=== PATIENT | male | born 1960 | race Hispanic/Latino ===

== ENCOUNTER 2021-09-09 12:17 | Emergency (ER) | payer OTHER ==
[~2021-09-09] VITALS: Ht 180.3 cm; Wt 95.7 kg
[2021-09-09 12:56] LABS: BASOPHILS % (AUTO) 1.1 % (0.0-5.0); EOSINOPHILS % (AUTO) 4.4 % (0.0-8.0); HEMATOCRIT 29.2 % (42-54); LYMPHOCYTES % (AUTO) 7.5 % (21.0-51.0); MEAN CORPUSCULAR HEMOGLOBIN 29.6 pg (27.0-33.0); MEAN CORPUSCULAR HGB CONC 31.8 g/dL (32.0-36.0); MONOCYTES % (AUTO) 9.1 % (3.0-13.0); NEUTROPHILS % (AUTO) 77.7 % (40.0-77.0); PLATELET COUNT (AUTO) 218 K/uL (130-400); RED BLOOD CELL COUNT(AUTO) 3.14 MIL/uL (4.50-6.20); RED CELL DISTRIBUTION WIDTH 12.7 % (11.0-15.5); WHITE BLOOD COUNT (AUTO) 8.3 K/uL (4.8-10.8)
[2021-09-09] MEDS ORDERED: HYDROCODONE/ACETAMINOPHEN 10/325 MG TAB PO ONE (13:00)
[2021-09-09] MEDS ORDERED: KETOROLAC 60 MG VIAL (30MG/ML) IM ONE (13:00)
[2021-09-09] MEDS ORDERED: CYCLOBENZAPRINE HCL 10 MG TABLET PO ONE (13:00)
[2021-09-09 13:04] LABS: CREATININE 3.2 mg/dL (0.5-1.5); POTASSIUM 4.6 mmol/L (3.5-5.1)
[2021-09-09 13:08] LABS: BILIRUBIN,TOTAL 0.5 mg/dL (0.2-1.0); TOTAL PROTEIN, SERUM 7.2 g/dL (6.0-8.3)
[2021-09-09] MEDS ORDERED: CYCL10TA16 PO (13:56)
[2021-09-09] MEDS ORDERED: ACET-2247 PO (13:56)
[2021-09-09 14:09] VITALS: BP 166/67
== END 2021-09-09 14:11 | disposition home or self-care (01) ==
LOC: EDH 12:17
DX: S16.1XXA Strain of muscle, fascia and tendon at neck level, initial encounter (principal); S20.219A Contusion of unspecified front wall of thorax, initial encounter; M25.512 Pain in left shoulder; M25.511 Pain in right shoulder; D64.9 Anemia, unspecified; N28.9 Disorder of kidney and ureter, unspecified; I11.0 Hypertensive heart disease with heart failure; I50.9 Heart failure, unspecified; E11.9 Type 2 diabetes mellitus without complications; E78.00 Pure hypercholesterolemia, unspecified; I25.10 Atherosclerotic heart disease of native coronary artery without angina pectoris; V49.49XA Driver injured in collision with other motor vehicles in traffic accident, initial encounter; Y93.89 Activity, other specified; Y92.89 Other specified places as the place of occurrence of the external cause; Y99.8 Other external cause status
CPT/HCPCS: 36415; 71250; 72125; 73030 ×2; 80053; 85025; 96372; 99285; J1885

== ENCOUNTER 2024-03-16 06:59 | Day surgery (SDC) | payer MEDICARE ==
[2024-03-12 13:08] LABS: BASOPHILS # (AUTO) 0.11 K/uL (0.00-0.20); BASOPHILS % (AUTO) 1.7 % (0.0-5.0); EOSINOPHILS # (AUTO) 0.57 K/uL (0.00-0.70); EOSINOPHILS % (AUTO) 8.8 % (0.0-8.0); IMMATURE GRANULOCYTE ABSOLUTE 0.01 K/uL (0-1); LYMPHOCYTES # (AUTO) 0.7 K/uL (1.0-4.8); LYMPHOCYTES % (AUTO) 11.4 % (21.0-51.0); MEAN CORPUSCULAR HEMOGLOBIN 30.5 pg (27.0-33.0); MEAN CORPUSCULAR HGB CONC 31.9 g/dL (32.0-36.0); MEAN CORPUSCULAR VOLUME 95.6 fL (79-99); MONOCYTES # (AUTO) 0.8 K/uL (0.1-1.0); MONOCYTES % (AUTO) 12.6 % (3.0-13.0); NEUTROPHILS # (AUTO) 4.3 K/uL (1.8-7.7); NEUTROPHILS % (AUTO) 65.3 % (40.0-77.0); PLATELET COUNT (AUTO) 198 K/uL (130-400); RED BLOOD CELL COUNT(AUTO) 3.87 MIL/uL (4.50-6.20); RED CELL DISTRIBUTION WIDTH 14.6 % (11.0-15.5); WHITE BLOOD COUNT (AUTO) 6.5 K/uL (4.8-10.8)
[2024-03-12 13:18] LABS: CREATININE 5.1 mg/dL (0.5-1.3); POTASSIUM 4.8 mmol/L (3.5-5.1)
[2024-03-12 13:59] VITALS: BP 153/79; PULSE 66; RESP 18
[2024-03-12 14:25] LABS: INR 0.97 (0.85-1.15); PROTHROMBIN TIME 10.3 SEC (9.6-11.6)
[2024-03-12 15:23] LABS: PARTIAL THROMBOPLASTIN TIME 25.4 SEC (26.3-35.5)
[2024-03-16] VITALS (16 sets, daily range): BP systolic 127–173; BP diastolic 53–95; PULSE 56–66; RESP 9–18
[~2024-03-16] VITALS: Ht 180.3 cm; Wt 96.6 kg
[~2024-03-16 06:59] MED LIST: ALBUTEROL IH; ASPI-1005 PO; CARV12.511 PO; FAMO20TA8 PO; FERS325 PO; FURO20TA4 PO; HYDR-3421 PO; LOSA50TA64 PO; NITR0.4T50 SL; TAMS-1 PO
[2024-03-16] MEDS: CEFAZOLIN SODIUM 2 GM VIAL ONE (07:54)
[2024-03-16] MEDS: 0.9% NACL 500ML IV.SOLN 500 ML IV ONE (07:55)
[2024-03-16 08:02] LABS: CREATININE 6.6 mg/dL (0.5-1.3); POTASSIUM 4.3 mmol/L (3.5-5.1)
[2024-03-16] MEDS ORDERED: METO50TA18 PO (08:05)
[2024-03-16] MEDS ORDERED: INSLAN SQ (08:05)
[2024-03-16] MEDS ORDERED: LIDOCAINE PF 100MG/5ML (2%) SYRINGE 5ML ONE (08:33)
[2024-03-16] MEDS ORDERED: DEXAMETHASONE SOD PHOSPHATE 10MG/ML 1ML VIAL ONE (08:33)
[2024-03-16] MEDS ORDERED: NEOSTIGMINE METHYLSULFATE 1MG/ML IV ONE (08:34)
[2024-03-16] MEDS ORDERED: ONDANSETRON 4MG INJ ONE (08:34)
[2024-03-16] MEDS ORDERED: MIDAZOLAM HCL 1 MG/ML 2ML VIAL ONE (08:34)
[2024-03-16] MEDS ORDERED: ROCURONIUM BROMIDE 10MG/1ML 5ML VL ONE (08:34)
[2024-03-16] MEDS ORDERED: GLYCOPYRROLATE 0.2 MG/ML 5 ML VIAL ONE (08:34)
[2024-03-16] MEDS ORDERED: PROPOFOL 10 MG/ML 20ML VIAL IV ONE (08:34)
[2024-03-16] MEDS ORDERED: FENTANYL CITRATE PF 50 MCG/1 ML 2ML VIAL ONE (08:35)
[2024-03-16] MEDS: CEFAZOLIN SODIUM 2 GM VIAL IVPB ONE (09:00)
[2024-03-16] MEDS ORDERED: PROTAMINE SULFATE 10 MG/ML 5 ML VIAL ONE (10:03)
[2024-03-16] MEDS ORDERED: EPHEDRINE SULFATE 50 MG/ML AMPULE ONE (10:04)
[2024-03-16] MEDS: ACETAMINOPHEN 1,000 MG/100 ML VIAL IV ONE (11:07)
[2024-03-16] MEDS: DEXTROSE 50%-WATER 50 ML DISP.SYRIN IV ONE (11:07)
[2024-03-16] MEDS: FENTANYL CITRATE PF 50 MCG/1 ML 2ML VIAL ONE (11:08)
== END 2024-03-16 12:35 | disposition home or self-care (01) ==
LOC: DAH 06:59
PROVIDERS: ATTEND Student in an Organized Health Care Education/Training Program
DX: I12.0 Hypertensive chronic kidney disease with stage 5 chronic kidney disease or end stage renal disease (principal); E11.22 Type 2 diabetes mellitus with diabetic chronic kidney disease; N18.6 End stage renal disease; F41.9 Anxiety disorder, unspecified; J44.9 Chronic obstructive pulmonary disease, unspecified; I25.118 Atherosclerotic heart disease of native coronary artery with other forms of angina pectoris; I70.223 Atherosclerosis of native arteries of extremities with rest pain, bilateral legs; I65.23 Occlusion and stenosis of bilateral carotid arteries; Z95.1 Presence of aortocoronary bypass graft; Z89.431 Acquired absence of right foot; Z79.82 Long term (current) use of aspirin; Z79.899 Other long term (current) drug therapy; Z98.890 Other specified postprocedural states; Z99.2 Dependence on renal dialysis
CPT/HCPCS: 80048 ×2; 85025; 85610; 85730; 86850 ×2; 86900 ×2; 86901 ×2; 36415 ×2; 36821; 82948 ×3; A6260; A4223 ×2; A4663; J7040 ×2; J3010 ×2; J1100; J7070; J3490 ×3; J2001; J2720; J2250; J2704; J2405; J2710; J1644 ×2; J0690 ×2; A6446; G0168; A4649; C1713 ×2; A4215; A4213; A4222; A4221

== ENCOUNTER 2024-06-28 10:27 | Emergency (ER) | payer MEDICARE ==
[~2024-06-28] VITALS: Ht 180.3 cm; Wt 98.9 kg
[~2024-06-28 10:27] MED LIST changes: +INSLAN SQ; +METO50TA18 PO
[2024-06-28 11:05] LABS: BILIRUBIN,URINE SMALL mg/dL (NEGATIVE); GLUCOSE, URINE (UA) 250 mg/dL (NEGATIVE); KETONES,URINE NEGATIVE (NEGATIVE); LEUKOCYTE ESTERASE ,URINE TRACE Leu/uL (NEGATIVE); NITRATE,URINE POSITIVE (NEGATIVE); OCCULT BLOOD,URINE LARGE (NEGATIVE); PH,URINE 7.5 (5.0-8.0); PROTEIN,URINE 100 mg/dL (NEGATIVE); UROBILINOGEN,URINE 0.2 mg/dL (0.2-1.0)
[2024-06-28 11:06] LABS: ADD UA MICROSCOPIC YES; APPEARANCE,URINE CLOUDY (CLEAR); COLOR,URINE RED (YELLOW)
[2024-06-28 11:07] LABS: RBC,URINE TNTC /HPF (0-1)
[2024-06-28 11:08] LABS: BACTERIA,URINE Moderate /HPF (None Seen)
[2024-06-28 11:09] LABS: SQUAMOUS EPITHELIAL CELL,UR None Seen /HPF (0-2)
[2024-06-28 11:15] LABS: BASOPHILS % (AUTO) 1.2 % (0.0-5.0); EOSINOPHILS # (AUTO) 0.56 K/uL (0.00-0.70); EOSINOPHILS % (AUTO) 6.9 % (0.0-8.0); HEMATOCRIT 30.8 % (42-54); IMMATURE GRANULOCYTE ABSOLUTE 0.01 K/uL (0-1); LYMPHOCYTES # (AUTO) 0.7 K/uL (1.0-4.8); LYMPHOCYTES % (AUTO) 8.1 % (21.0-51.0); MEAN CORPUSCULAR HEMOGLOBIN 30.8 pg (27.0-33.0); MEAN CORPUSCULAR HGB CONC 31.8 g/dL (32.0-36.0); MEAN CORPUSCULAR VOLUME 96.9 fL (79-99); MONOCYTES # (AUTO) 0.8 K/uL (0.1-1.0); MONOCYTES % (AUTO) 9.4 % (3.0-13.0); NEUTROPHILS # (AUTO) 6.1 K/uL (1.8-7.7); NEUTROPHILS % (AUTO) 74.3 % (40.0-77.0); PLATELET COUNT (AUTO) 229 K/uL (130-400); RED BLOOD CELL COUNT(AUTO) 3.18 MIL/uL (4.50-6.20); RED CELL DISTRIBUTION WIDTH 14.6 % (11.0-15.5); WHITE BLOOD COUNT (AUTO) 8.2 K/uL (4.8-10.8)
[2024-06-28 11:27] LABS: CREATININE 6.7 mg/dL (0.5-1.3); POTASSIUM 4.9 mmol/L (3.5-5.1)
[2024-06-28] MEDS: cefTRIAXone 1G VIAL IVPB STA (13:08)
[2024-06-28] MEDS ORDERED: CEPH500B PO (13:15)
[2024-06-28 13:16] VITALS: BP 138/78; PULSE 68; RESP 18; TEMP 97.7; O2SAT 97
== END 2024-06-28 13:21 | disposition home or self-care (01) ==
LOC: EDH 10:27
DX: N30.91 Cystitis, unspecified with hematuria (principal); I25.10 Atherosclerotic heart disease of native coronary artery without angina pectoris; E11.9 Type 2 diabetes mellitus without complications; E78.00 Pure hypercholesterolemia, unspecified; I11.0 Hypertensive heart disease with heart failure; I50.9 Heart failure, unspecified; Z79.4 Long term (current) use of insulin; Z79.82 Long term (current) use of aspirin; Z79.899 Other long term (current) drug therapy; Z95.1 Presence of aortocoronary bypass graft
CPT/HCPCS: 99285; 74176; 96374; 80048; 85025; 87086 ×2; 87186; 81001; 36415; J0696

== ENCOUNTER 2024-07-08 23:51 | Emergency (ER) | payer MEDICARE ==
[~2024-07-08] VITALS: Ht 180.3 cm; Wt 102.1 kg
[~2024-07-08 23:51] MED LIST changes: +CEPH500B PO
[2024-07-09] MEDS: acetaMINOPHEN WITH coDEINE 1 TAB TAB PO ONE (00:26)
[2024-07-09 01:08] LABS: BASOPHILS # (AUTO) 0.08 K/uL (0.00-0.20); BASOPHILS % (AUTO) 1.1 % (0.0-5.0); EOSINOPHILS # (AUTO) 0.36 K/uL (0.00-0.70); HEMATOCRIT 25.8 % (42-54); IMMATURE GRANULOCYTE ABSOLUTE 0.03 K/uL (0-1); LYMPHOCYTES # (AUTO) 0.6 K/uL (1.0-4.8); LYMPHOCYTES % (AUTO) 8.3 % (21.0-51.0); MEAN CORPUSCULAR HEMOGLOBIN 31.2 pg (27.0-33.0); MEAN CORPUSCULAR HGB CONC 33.7 g/dL (32.0-36.0); MEAN CORPUSCULAR VOLUME 92.5 fL (79-99); MONOCYTES # (AUTO) 1.1 K/uL (0.1-1.0); NEUTROPHILS % (AUTO) 70.2 % (40.0-77.0); PLATELET COUNT (AUTO) 204 K/uL (130-400); RED BLOOD CELL COUNT(AUTO) 2.79 MIL/uL (4.50-6.20); RED CELL DISTRIBUTION WIDTH 14.5 % (11.0-15.5); WHITE BLOOD COUNT (AUTO) 7.2 K/uL (4.8-10.8)
[2024-07-09 01:22] LABS: CREATININE 6.5 mg/dL (0.5-1.3)
[2024-07-09 01:25] LABS: INR 1.13 (0.85-1.15); PROTHROMBIN TIME 12.1 SEC (9.6-11.6)
[2024-07-09 01:26] LABS: PARTIAL THROMBOPLASTIN TIME 31.5 SEC (26.3-35.5)
[2024-07-09] MEDS ORDERED: MAGN300C PO (01:55)
[2024-07-09] MEDS ORDERED: ACET-2079 PO (01:55)
[2024-07-09 02:29] VITALS: BP 154/52; PULSE 68; RESP 20; TEMP 98.2; O2SAT 94
[2024-07-09 02:45] LABS: WBC MORPHOLOGY CONSISTENT W/DIFF
== END 2024-07-09 02:32 | disposition home or self-care (01) ==
LOC: EDH 23:51
DX: I82.431 Acute embolism and thrombosis of right popliteal vein (principal); I12.0 Hypertensive chronic kidney disease with stage 5 chronic kidney disease or end stage renal disease; E11.22 Type 2 diabetes mellitus with diabetic chronic kidney disease; N18.6 End stage renal disease; E87.8 Other disorders of electrolyte and fluid balance, not elsewhere classified; R25.2 Cramp and spasm; Z99.2 Dependence on renal dialysis; Z79.4 Long term (current) use of insulin; Z79.82 Long term (current) use of aspirin; Z79.899 Other long term (current) drug therapy; Z95.1 Presence of aortocoronary bypass graft
CPT/HCPCS: 36415; 80048; 85025; 85610; 85730; 93971

== ENCOUNTER 2024-08-17 15:17 | Emergency (ER) | payer MEDICARE ==
[~2024-08-17 15:17] MED LIST changes: +ACET-2079 PO; +MAGN300C PO
--- NOTE | 2024-08-17 15:21 | NUR ---
REFER TO CODE BLUE SHEET
--- NOTE | 2024-08-17 16:25 | ERN ---
General Chief Complaint: CPR/Full Arrest Stated Complaint: CARDIAC ARREST Time Seen by MD: 15:31 Source: EMS History of Present Illness Initial Comments PATIENT IS A 63-YEAR-OLD MALE BROUGHT IN THE CARDIAC ARREST. PER EMS PATIENT WAS FOUND UNRESPONSIVE IN HIS VEHICLE. PATIENT DOES HAVE A HISTORY OF KIDNEY FAILURE. Allergies: Coded Allergies: No Known Drug Allergies (Unverified Allergy, Unknown, 09/09/21) Home Meds Active Scripts Magnesium Oxide/Mag Aa Chelate (Magnesium 300 mg Capsule) 300 Mg Capsule, 300 MG PO DAILY for 10 Days, #10 CAP 0 Refills Prov:SKYLAR FLORES [employer] 07/09/24 Acetaminophen with Codeine (Acetaminophen-Cod #3 Tablet) 300 Mg-30 Mg Tablet, 1 TAB PO Q6H PRN for MODERATE TO SEVERE PAIN, #15 TAB 0 Refills Prov:SKYLAR FLORES [employer] 07/09/24 Cephalexin Monohydrate (Keflex) 500 Mg Cap, 500 MG PO QID for 7 Days, #28 CAP Prov:SUSAN CHILD [employer] 06/28/24 Reported Medications Insulin Glargine,Hum.rec.anlog (Lantus) 100 Unit/Ml Inj, 20 UNITS SQ BID, ML 03/16/24 Metoprolol Tartrate (Metoprolol Tartrate) 50 Mg Tablet, 50 MG PO DAILY, TAB 03/16/24 [Albuterol] No Conflict Check, 1 PUFF IH AD PRN for SHORTNESS OF BREATH 03/12/24 Nitroglycerin (Nitroglycerin) 0.4 Mg Tab.subl, 0.4 MG SL AD PRN for CHEST PAIN, TAB.SL 03/12/24 Furosemide (Furosemide) 20 Mg Tablet, 20 MG PO BID, TAB 03/12/24 Tamsulosin HCl (Flomax) 0.4 Mg Cap.er.24h, 0.4 MG PO HS, CAPSULE.DR 03/12/24 Ferrous Sulfate (Ferrous Sulfate) 325 Mg (65 Mg Iron) Ectab, 325 MG PO AM, TAB.EC 03/12/24 Aspirin (ASPIRIN 81MG CHEW TAB) 81 Mg Tab.chew, 81 MG PO DAILY, TAB.CHEW 03/12/24 Famotidine (Famotidine) 20 Mg Tablet, 20 MG PO BID, TAB 03/12/24 Losartan Potassium (Losartan Potassium) 50 Mg Tablet, 50 MG PO AM, TAB 03/12/24 Carvedilol (Carvedilol) 12.5 Mg Tablet, 12.5 MG PO BID, TAB 03/12/24 Hydroxyzine HCl (Hydroxyzine HCl) 25 Mg Tablet, 25 MG PO BID, TAB 03/12/24 Past Medical History Past Medical History: Diabetes-Type II, Hypertension, Other Medical History Other: HX OF DOUBLE BYPASS Past Surgical History: CABG, Other ROS Dictation UNABLE TO PERFORM DUE TO CARDIAC ARREST Physical Exam Physical Exam Dictation UNRESPONSIVE INTUBATED MDM MDM: DIFFERENTIAL DIAGNOSIS: CARDIAC ARREST, , 63-YEAR-OLD MALE BROUGHT IN IN CARDIAC ARREST. MULTIPLE EPISODES EPINEPHRINE WERE GIVEN CPR WAS CARRIED OUT. NO RESPONSE AFTER 15 MINUTES. NO ROSC OBTAINED DECISION WAS MADE TO CALL OFF CPR. DX & DISP Disposition: Discharge Departure Impression: Primary Impression: Cardiac arrest Additional Impression: Condition: Referrals: SELF,REFERRAL (PCP) PAT REYNA MD Aug 17, 2024 16:25
== END 2024-08-17 15:29 ==
LOC: EDH 15:17
DX: I46.9 Cardiac arrest, cause unspecified (principal); E11.9 Type 2 diabetes mellitus without complications; I10 Essential (primary) hypertension; Z79.4 Long term (current) use of insulin; Z79.82 Long term (current) use of aspirin; Z79.899 Other long term (current) drug therapy; Z95.1 Presence of aortocoronary bypass graft
CPT/HCPCS: 92950; 99285